=== PATIENT | male | born 2000 | race Caucasian/White ===

== ENCOUNTER 2023-01-21 22:31 | Emergency (ER) | payer SELFPAY ==
[~2023-01-21] VITALS: Ht 175.3 cm; Wt 104.3 kg
[2023-01-21 22:46] VITALS: O2SAT 99
[2023-01-21] MEDS ORDERED: THERAFLU MS SE1 EACH PO (23:26)
[2023-01-21] MEDS ORDERED: CEPHALEXIN500 MG PO (23:26)
[2023-01-21] MEDS ORDERED: IBUPROFEN200 MG PO (23:26)
[2023-01-21] MEDS ORDERED: IBUPROFEN 600 MG TAB ONE (23:29)
[2023-01-21] MEDS ORDERED: ACETAMINOPHEN 325 MG TAB ONE (23:29)
[2023-01-21] MEDS ORDERED: CEPHALEXIN MONOHYDRATE 250 MG CAP ONE (23:29)
[2023-01-21] MEDS ORDERED: CEPHALEXIN MONOHYDRATE 250 MG CAP PO ONE (23:30)
[2023-01-21] MEDS ORDERED: ACETAMINOPHEN 325 MG TAB PO ONE (23:30)
[2023-01-21] MEDS ORDERED: CEPHALEXIN 500 MG CAP PO ONE (23:30)
== END 2023-01-22 00:01 | disposition home or self-care (01) ==
LOC: FSED 22:35
DX: H92.03 Otalgia, bilateral (principal); J02.9 Acute pharyngitis, unspecified; J06.9 Acute upper respiratory infection, unspecified; Z20.822 Contact with and (suspected) exposure to COVID-19
CPT/HCPCS: 0223U; 83518; 87400; 99283